=== PATIENT | male | born 1975 | race African-American/Black ===

== ENCOUNTER → 2017-10-23 | Outpatient (CLI) | payer OTHER ==
--- NOTE | 2017-10-24 07:43 | RAD ---
Indication: Short of air and chest pressure. Smoker. Technique: Two-view chest radiograph was obtained. No comparison is available. Findings: The lungs are clear. The cardiopulmonary silhouette is within normal limits. There is no pleural effusion. Bony structures are intact. Impression: No active pulmonary disease. Electronically signed by: Santiago Meeks MD (10/24/2017 7:39 AM) [facility]
== END | disposition home or self-care (01) ==
LOC: RAD 16:58
PROVIDERS: ATTEND Family Medicine
DX: R06.02 Shortness of breath (principal); R07.89 Other chest pain; F17.200 Nicotine dependence, unspecified, uncomplicated
CPT/HCPCS: 71046

== ENCOUNTER 2019-08-04 12:24 | Emergency (ER) | payer SELFPAY ==
[~2019-08-04] VITALS: Ht 190.5 cm; Wt 142.5 kg
[2019-08-04] MEDS ORDERED: KETOROLAC 60 MG/2 ML VIAL. IM ONE (13:00)
--- NOTE | 2019-08-04 13:01 | PHYS DOC ---
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 He states the pain started last night and is been severe in nature. He states it does radiate to his back. He denies any dysuria gross hematuria. He denies any urethral discharge. He does admit to polyuria and polydipsia. [] Review of Systems: Review of Systems: Constitutional: Denies fever or chills Eyes: Denies change in visual acuity HENT: Denies nasal congestion or sore throat Respiratory: Denies cough or shortness of breath Cardiovascular: Denies chest pain or edema GI: Denies abdominal pain, nausea, vomiting, bloody stools or diarrhea : Per HPI Musculoskeletal: Denies back pain or joint pain Integument: Denies rash Neurologic: Denies headache, focal weakness or sensory changes Endocrine: Reports polyuria and polydipsia Lymphatic: Denies swollen glands Psychiatric: Denies depression or anxiety Heart Score: Risk Factors: Risk Factors: DM, Current or recent (<one month) smoker, HTN, HLP, family history of CAD, obesity. Risk Scores: Score 0 - 3: 2.5% MACE over next 6 weeks - Discharge Home Score 4 - 6: 20.3% MACE over next 6 weeks - Admit for Clinical Observation Score 7 - 10: 72.7% MACE over next 6 weeks - Early Invasive Strategies Family History: Family History: Says he has a family history of diabetes Current Medications: Current Meds: Current Medications Medications (Trade) Dose Ordered Sig/[facility] Start Time Stop Time Status Last Admin Dose Admin Ketorolac Tromethamine (Toradol Im) 60 mg 1X ONCE 08/04/19 13:00 08/04/19 13:01 08/04/19 12:55 60 MG Allergies: Allergies: Allergies Coded Allergies Type Severity Reaction Last Updated Verified No Known Drug Allergies 08/04/19 No Physical Exam: PE: Constitutional: Well developed, well nourished, no acute distress, non-toxic appearance. [] HENT: Normocephalic, atraumatic, bilateral external ears normal, oropharynx moist, no oral exudates, nose normal. [] Eyes: PERRLA, EOMI, conjunctiva normal, no discharge. [] Neck: Normal range of motion, no tenderness, supple, no stridor. [] Cardiovascular:Heart rate regular rhythm, no murmur [] Lungs & Thorax: Bilateral breath sounds clear to auscultation [] Abdomen: Bowel sounds normal, soft, no tenderness, no masses, no pulsatile masses. [] : Right testicle is mildly tender to palp not particularly swollen no erythema Skin: Warm, dry, no erythema, no rash. [] Back: No tenderness, no CVA tenderness. [] Extremities: No tenderness, no cyanosis, no clubbing, ROM intact, no edema. [] Neurologic: Alert and oriented X 3, normal motor function, normal sensory function, no focal deficits noted. [] Psychologic: Affect normal, judgement normal, mood normal. [] Current Patient Data: Vital Signs: Vital Signs Date Time Temp Pulse Resp B/P (MAP) Pulse Ox O2 Delivery O2 Flow Rate FiO2 08/04/19 12:30 98.0 75 20 161/113 (129) 97 Room Air EKG: EKG: [] Radiology/Procedures: Radiology/Procedures: []PROCEDURE: TESTICULAR/SCROTUM EXAM: Scrotal Ultrasound INDICATION: Right testicle pain ? TECHNIQUE: Real-time ultrasound of the scrotum with permanent freeze-frame documentation. ? COMPARISON:?None. ? FINDINGS: RIGHT: TESTICLE: 5.1 x 3.3 x 2.0 cm. Unremarkable. Normal blood flow. EPIDIDYMIS: Unremarkable. OTHER: Right groin lymph node measuring 3.0 x 1.4 x 1.0 cm shows no cortical thickening or abnormal decreased echogenicity. A right varicocele is present. LEFT: TESTICLE: 5.2 x 2.9 x 2.3 cm. Unremarkable. Normal blood flow. EPIDIDYMIS: Unremarkable. OTHER: No varicocele or hydrocele. SCROTAL WALL: Unremarkable. IMPRESSION: ? Right varicocele. Otherwise unremarkable scrotal ultrasound. Normal testicles. Impressions: The right scrotal ultrasound was negative according to the radiologist. Course & Med Decision Making: Course & Med Decision Making Pertinent Labs and Imaging studies reviewed. (See chart for details) [] Dragon Disclaimer: Dragon Disclaimer: This electronic medical record was generated, in whole or in part, using a voice recognition dictation system. Departure Departure: Impression: Primary Impression: Right testicular pain Disposition: HOME, SELF-CARE Condition: STABLE Referrals: PCP,BLANQUITA (PCP) Patient Instructions: Scrotal Swelling, Testicular Problems and Self-Exam Additional Instructions: Return to the emergency department with any new or concerning symptoms Scripts Naproxen (NAPROXEN) 500 Mg Tablet. 1 TAB PO Q12HR PRN for PAIN, #60 TAB 1 Refill Prov: PAO WYNNE DO 08/04/19 PAO WYNNE DO Aug 04, 2019 13:01
[2019-08-04 13:26] LABS: BASO # 0.1 x10^3/uL (0.0-0.2); BASO % 1 % (0-3); EOS # 0.3 x10^3/uL (0.0-0.7); EOS % 3 % (0-3); HEMATOCRIT 45.8 % (39.0-53.0); HEMOGLOBIN 15.8 g/dL (13.0-17.5); LYMPH # 3.4 x10^3/uL (1.0-4.8); LYMPH % 32 % (24-48); MEAN CORPUSCULAR HEMOGLOBIN 32 pg (25-35); MEAN CORPUSCULAR HGB CONC 34 g/dL (31-37); MEAN CORPUSCULAR VOLUME 94 fL (79-100); MONO # 0.8 x10^3/uL (0.0-1.1); MONO % 8 % (0-9); NEUT # 5.9 x10^3uL (1.8-7.7); NEUT % 57 % (31-73); PLATELET COUNT 218 x10^3/uL (140-400); RED BLOOD COUNT 4.86 x10^6/uL (4.30-5.70); RED CELL DISTRIBUTION WIDTH 13.6 % (11.5-14.5); WHITE BLOOD COUNT 10.4 x10^3/uL (4.0-11.0)
[2019-08-04 13:32] LABS: CALCIUM 9.1 mg/dL (8.5-10.1); CREATININE 0.9 mg/dL (0.7-1.3); GFR 110.4; POTASSIUM 3.5 mmol/L (3.5-5.1)
[2019-08-04 13:36] VITALS: BP 151/107
[2019-08-04 13:38] LABS: ALBUMIN 3.7 g/dL (3.4-5.0); ALBUMIN/GLOBULIN RATIO 1.1 (1.0-1.7); TOTAL BILIRUBIN 0.4 mg/dL (0.2-1.0); TOTAL PROTEIN 7.1 g/dL (6.4-8.2)
[2019-08-04 13:45] LABS: BACTERIA,URINE 0 /HPF (0-FEW); BILIRUBIN,URINE NEG (NEG); CLARITY,URINE CLEAR; COLOR,URINE YELLOW; GLUCOSE,URINE NEG (NEG); NITRITE,URINE NEG (NEG); SQUAMOUS EPITHELIAL CELL,UR FEW /LPF; UROBILINOGEN,URINE 0.2 mg/dL (0.2 mg/dL)
[2019-08-04] MEDS ORDERED: NAPR500T8 PO (14:02)
== END 2019-08-04 14:08 | disposition home or self-care (01) ==
LOC: ER 12:24
DX: N50.811 Right testicular pain (principal); R35.8 Other polyuria; R63.1 Polydipsia; F17.200 Nicotine dependence, unspecified, uncomplicated
CPT/HCPCS: 36415; 76870; 80053; 81001; 85025; 96372; 99284; J1885

== ENCOUNTER 2019-08-14 14:03 | Emergency (ER) | payer SELFPAY ==
[~2019-08-14] VITALS: Ht 188 cm; Wt 144.7 kg
[~2019-08-14 14:03] MED LIST: NAPR500T8 PO
[2019-08-14] MEDS ORDERED: KETOROLAC 60 MG/2 ML VIAL. IM ONE (14:30)
[2019-08-14] MEDS ORDERED: ORPHENADRINE CITRATE 60 MG/2 ML VIAL. IM ONE (14:45)
[2019-08-14] MEDS ORDERED: NAPR-682 PO (14:45)
[2019-08-14] MEDS ORDERED: DIAZ2TAB PO (14:45)
[2019-08-14] MEDS ORDERED: PRED20TA PO (14:45)
[2019-08-14] MEDS ORDERED: methylPREDNISolone SOD SUCC PF 125 MG/2 ML VIAL. IM ONE (14:45)
[2019-08-14] MEDS ORDERED: DIAZ5TAB PO (14:52)
--- NOTE | 2019-08-14 14:53 | PHYS DOC ---
Past History Past Medical History: No Pertinent History Past Surgical History: No Surgical History Additional Smoking Information: PACK/DAY Alcohol Use: Occasionally General Adult EDM: Chief Complaint: Neck Pain HPI: HPI: Patient is a 44 years old male who presented to the ER today for evaluation of neck pain and stiffness for two days, no fever, no headache, no sorethroat. He woke up yesterday, felt like he slept on it wrong, having pain, went to work, has have trouble bending his neck. He denied any injury. No upper and lower extremities weakness or numbness. No cough, no sick contact. Review of Systems: Review of Systems: Constitutional: Denies fever or chills Eyes: Denies change in visual acuity HENT: Denies nasal congestion or sore throat Respiratory: Denies cough or shortness of breath Cardiovascular: Denies chest pain or edema GI: Denies abdominal pain, nausea, vomiting, bloody stools or diarrhea : Denies dysuria Musculoskeletal: Denies back pain, positive for neck pain and stiffness. Integument: Denies rash Neurologic: Denies headache, focal weakness or sensory changes Endocrine: Denies polyuria or polydipsia Lymphatic: Denies swollen glands Psychiatric: Denies depression or anxiety Heart Score: Risk Factors: Risk Factors: DM, Current or recent (<one month) smoker, HTN, HLP, family history of CAD, obesity. Risk Scores: Score 0 - 3: 2.5% MACE over next 6 weeks - Discharge Home Score 4 - 6: 20.3% MACE over next 6 weeks - Admit for Clinical Observation Score 7 - 10: 72.7% MACE over next 6 weeks - Early Invasive Strategies Current Medications: Current Meds: Current Medications Medications (Trade) Dose Ordered Sig/[facility] Start Time Stop Time Status Last Admin Dose Admin Ketorolac Tromethamine (Toradol Im) 60 mg 1X ONCE 08/14/19 14:30 08/14/19 14:31 UNV Methylprednisolone Sodium Succinate (SOLU-Medrol 125MG VIAL) 125 mg 1X ONCE 08/14/19 14:30 08/14/19 14:31 UNV Orphenadrine Citrate (Norflex) 60 mg 1X ONCE 08/14/19 14:30 08/14/19 14:31 UNV Allergies: Allergies: Allergies Coded Allergies Type Severity Reaction Last Updated Verified No Known Drug Allergies 08/04/19 No Physical Exam: PE: Constitutional: Well developed, well nourished, no acute distress, non-toxic appearance. [] HENT: Normocephalic, atraumatic, bilateral external ears normal, oropharynx moist, no oral exudates, nose normal. [] Eyes: PERRLA, EOMI, conjunctiva normal, no discharge. [] Neck: Normal range of motion, no tenderness, supple, no stridor. [] Cardiovascular:Heart rate regular rhythm, no murmur [] Lungs & Thorax: Bilateral breath sounds clear to auscultation [] Abdomen: Bowel sounds normal, soft, no tenderness, no masses, no pulsatile ma sses. [] Skin: Warm, dry, no erythema, no rash. [] Back: No tenderness, no CVA tenderness. Neck's muscle is tensed, and spasm, tender to touch. No midline cervical tenderness to palpation. Extremities: No tenderness, no cyanosis, no clubbing, ROM intact, no edema. [] Neurologic: Alert and oriented X 3, normal motor function, normal sensory function, no focal deficits noted. [] Psychologic: Affect normal, judgement normal, mood normal. [] Current Patient Data: Vital Signs: Vital Signs Date Time Temp Pulse Resp B/P (MAP) Pulse Ox O2 Delivery O2 Flow Rate FiO2 08/14/19 14:10 97.9 79 20 177/107 (130) 97 Room Air EKG: EKG: [] Radiology/Procedures: Radiology/Procedures: [] Course & Med Decision Making: Course & Med Decision Making Pertinent Labs and Imaging studies reviewed. (See chart for details) [] Dragon Disclaimer: Jose Miguel Disclaimer: This electronic medical record was generated, in whole or in part, using a voice recognition dictation system. Departure Departure: Impression: Primary Impression: Torticollis, acute Disposition: 01 HOME, SELF-CARE Condition: STABLE Referrals: PCP,BLANQUITA (PCP) Patient Instructions: Torticollis, Acute Scripts Diazepam (VALIUM) 5 Mg Tablet 5 MG PO TID for muscle spasm for 3 Days, #9 TAB Prov: ALMAZ HAZEL DO 08/14/19 Prednisone (PREDNISONE) 20 Mg Tablet 1 TAB PO DAILY for neck pain, #7 TAB Prov: ALMAZ HAZEL DO 08/14/19 Naproxen Sodium (ANAPROX DS) 550 Mg Tablet 1 TAB PO BID for pain for 15 Days, #30 TAB 0 Refills Prov: ALMAZ HAZEL DO 08/14/19 ALMAZ HAZEL DO August 14, 2019 14:53
[2019-08-14 15:00] VITALS: BP 183/102
== END 2019-08-14 15:04 | disposition home or self-care (01) ==
LOC: ER 14:03
DX: M43.6 Torticollis (principal); F17.200 Nicotine dependence, unspecified, uncomplicated
CPT/HCPCS: 96372; 99284; J1885; J2360; J2930

== ENCOUNTER 2020-11-14 16:42 | Emergency (ER) | payer BC ==
[~2020-11-14] VITALS: Ht 188 cm; Wt 143.7 kg
[~2020-11-14 16:42] MED LIST changes: +DIAZ2TAB PO; +DIAZ5TAB PO; +NAPR-682 PO; +PRED20TA PO
[2020-11-14] MEDS ORDERED: CYCL5TAB PO (17:03)
--- NOTE | 2020-11-14 17:07 | PHYS DOC ---
Past History Past Medical History: No Pertinent History Past Surgical History: No Surgical History Alcohol Use: Occasionally General Adult EDM: Chief Complaint: HIP PAIN HPI: HPI: Patient is a 45-year-old male being seen in the ER for left lower back pain that radiates into his buttock and down his leg. Patient reports a 2-day history of this pain. Patient was seen previously in this ER and diagnosed with sciatica. Patient denies any injury, saddle anesthesias, loss of bowel or bladder, numbness or tingling in extremitie. Patient rates pain 10 out of 10. No treatment prior to arrival. Patient is able to bear weight and ambulate with steady gait. Review of Systems: Review of Systems: 14 body systems of the review of systems have been reviewed. See HPI for pertinent positive and negative responses, otherwise all other systems are negative, nonpertinent or noncontributory Allergies: Allergies: Allergies Coded Allergies Type Severity Reaction Last Updated Verified No Known Drug Allergies 08/04/19 No Physical Exam: PE: Constitutional: Well developed, well nourished, no acute distress, non-toxic appearance. [] HENT: Normocephalic, atraumatic, bilateral external ears normal, oropharynx moist, no oral exudates, nose normal. [] Eyes: PERRL, EOMI, conjunctiva normal, no discharge. [] Neck: Normal range of motion, no tenderness, supple, no stridor. [] Cardiovascular:Heart rate regular rhythm, no murmur [] Lungs & Thorax: Bilateral breath sounds clear to auscultation [] Abdomen: Bowel sounds normal, soft, no tenderness, no masses, no pulsatile masses. [] Skin: Warm, dry, no erythema, no rash. [] Back: Normal range of motion, left lower paraspinal tenderness Extremities: No tenderness, no cyanosis, no clubbing, ROM intact, no edema. [] Neurologic: Alert and oriented X 3, normal motor function, normal sensory function, no focal deficits noted. [] Psychologic: Affect normal, judgement normal, mood normal. [] Current Patient Data: Vital Signs: Vital Signs Date Time Temp Pulse Resp B/P (MAP) Pulse Ox O2 Delivery O2 Flow Rate FiO2 11/14/20 16:51 97.9 88 20 159/107 98 Room Air EKG: EKG: [] Radiology/Procedures: Radiology/Procedures: [] Heart Score: C/O Chest Pain: No Risk Factors: Risk Factors: DM, Current or recent (<one month) smoker, HTN, HLP, family history of CAD, obesity. Risk Scores: Score 0 - 3: 2.5% MACE over next 6 weeks - Discharge Home Score 4 - 6: 20.3% MACE over next 6 weeks - Admit for Clinical Observation Score 7 - 10: 72.7% MACE over next 6 weeks - Early Invasive Strategies Course & Med Decision Making: Course & Med Decision Making Pertinent Labs and Imaging studies reviewed. (See chart for details) Patient is a 45-year-old male being seen in the ER for left lower back pain that radiates into his leg. Patient was previously diagnosed with sciatica. He does not have any new injuries or any concerning symptoms like saddle anesthesia or loss of bowel or bladder. I discussed with patient the options available to him with regard to imaging of his lower back. Patient reports that last time he was seen in the ER for this they gave him a shot and it helped with his pain and states that he would just like pain control. Patient treated for pain in the ER and discharged home with a muscle relaxer and advised to take anti- inflammatory medications. Patient is requesting a steroid medication as and reports that that is what they gave him last time that improved his symptoms. Patient discharged home with Medrol Dosepak. I discussed with patient all findings as well as the need to follow-up with PCP for further evaluation and treatment or return to the ER if any new or worsening symptoms. Strict return precautions were also discussed at length. Patient voiced understanding and agreement with the plan. Patient is hemodynamically stable at the time of disposition. Jose Miguel Disclaimer: Jose Miguel Disclaimer: This electronic medical record was generated, in whole or in part, using a voice recognition dictation system. Departure Departure: Impression: Primary Impression: Low back pain Qualified Codes: M54.42 - Lumbago with sciatica, left side; G89.29 - Other chronic pain Disposition: 01 HOME / SELF CARE / HOMELESS Condition: GOOD Referrals: PCP,NO (PCP) Patient Instructions: Sciatica Additional Instructions: You are seen in the ER for left lower back pain that radiated to your buttocks. This is most likely sciatica. You were treated in the ER for pain. You are also being discharged home with a prescription for steroid, please take as directed. Your are being discharged home with a prescription for a muscle relaxer. Please take this as directed. Do not take this medication when you need to be alert as it does cause sedation and do not take this medication with alcohol. You can continue to take naproxen or ibuprofen at home for antiinflammation. Follow-up with your primary care provider tomorrow regarding your ER visit. If you develop loss of bowel or bladder, numbness or tingling in your groin, worsening of your pain, inability to bear weight or walk, severe nausea or vomiting please return to the ER immediately. EMERGENCY DEPARTMENT GENERAL DISCHARGE INSTRUCTIONS Thank you for coming to [facility] (ED) today and trusting us with you care. We trust that you had a positivie experience in our Emergency Department. If you wish to speak to the department management, you may call the director at [phone]. YOUR FOLLOW UP INSTRUCTIONS ARE FOLLOWS: 1. Do you have a private Doctor? If you do not have a private doctor, please ask for a resource list of physicians or clinics that may be able to assist you with follow up care. 2. The Emergency Physician has interpreted your x-rays. The X-Ray specialist will also review them. If there is a change in the findings, you will be notified in 48 hours when at all possible. 3. A lab test or culture has been done, your results will be reviewed and you will be notified if you need a change in treatment. ADDITIONAL INSTRUCTIONS AND INFORMATION: 1. Your care today has been supervised by a physician who is specially trained in emergency care. Many problems require more than one evaluation for a complete diagnosis and treatment. We recommend that you schedule your follow up appointment as recommended to ensure complete treatment of you illness or injury. If you are unable to obtain follow up care and continue to have a problem, or if your condition worsens, we recommend that you return to the ED. 2. We are not able to safely determine your condition over the phone nor are we able to give sound medical advice over the phone. For these safety reasons, if you call for medical advice we will ask you to come to the ED for further evaluation. 3. If you have any questions regarding these discharge instructions please call the ED at [phone]. SAFETY INFORMATION: In the interest of safety, wellness, and injury prevention; we encourage you to wear your sealbelt, if you smoke; quite smoking, and we encourage family to use a p rotective helmet for bicycling and other sporting events that present an increased risk for head injury. IF YOUR SYMPTOMS WORSEN OR NEW SYMPTOMS DEVELOP, OR YOU HAVE CONCERNS ABOUT YOUR CONDITION; OR IF YOUR CONDITION WORSENS WHILE YOU ARE WAITING FOR YOUR FOLLOW UP APPOINTMENT; EITHER CONTACT YOUR PRIMARY CARE DOCTOR, THE PHYSICIAN WHOSE NAME AND NUMBER YOU WERE GIVEN, OR RETURN TO THE ED IMMEDIATELY. Scripts Methylprednisolone (MEDROL) 4 Mg Tab.ds.pk 1 PKG PO UD for back pain, #1 PKG 0 Refills Prov: BRANDON FRAZIER APRN 11/14/20 Cyclobenzaprine Hcl (CYCLOBENZAPRINE HCL) 5 Mg Tablet 1 TAB PO TID for back pain for 3 Days, #9 TAB 0 Refills Prov: BRANDON FRAZIER APRN 11/14/20 BRANDON FRAZIER APRN Nov 14, 2020 17:07
[2020-11-14] MEDS: ORPHENADRINE CITRATE 60 MG/2 ML VIAL. IM ONE (17:10)
[2020-11-14] MEDS: KETOROLAC 60 MG/2 ML VIAL. IM ONE (17:10)
[2020-11-14] MEDS ORDERED: METH4TAB2 PO (17:18)
[2020-11-14 17:28] VITALS: BP 152/92
== END 2020-11-14 17:30 | disposition home or self-care (01) ==
LOC: ER 16:42
DX: M54.42 Lumbago with sciatica, left side (principal); G89.29 Other chronic pain
CPT/HCPCS: 96372; 99284; J1885; J2360

== ENCOUNTER 2021-05-03 13:02 | Emergency (ER) | payer BC ==
[~2021-05-03] VITALS: Ht 188 cm; Wt 143.7 kg
[~2021-05-03 13:02] MED LIST changes: +CYCL5TAB PO; +METH4TAB2 PO
[2021-05-03 14:15] VITALS: BP 152/92
[2021-05-03] MEDS ORDERED: IBUP600T16 PO (14:22)
[2021-05-03] MEDS ORDERED: CYCL10TA19 PO (14:22)
[2021-05-03] MEDS ORDERED: PRED20TA PO (14:22)
--- NOTE | 2021-05-03 14:23 | PHYS DOC ---
Past History Past Medical History: No Pertinent History Past Surgical History: No Surgical History Alcohol Use: Occasionally Adult General HPI HPI Patient is a 46-year-old male presents to the emergency department complaining of stiff neck after sleeping funny this past Friday. Patient reports he has experienced stiff neck problems in the past and responds well to steroids and muscle relaxers. Patient denies injury to his neck, denies recent fever or chills, denies other people living in his home with similar symptoms or illnesses. Denies chest pains, palpitations, fever or chills, chest or nasal congestion. Patient denies nausea. Patient denies stiffness or achiness to other parts of his body. Patient denies other physical complaints or physical concerns. Patient is asking for work excuse for today. Review of Systems Review of Systems 14 body systems of review of systems have been reviewed. See HPI for pertinent positives and negative responses, otherwise all other systems are negative, nonpertinent or noncontributory. Constitutional: Negative except as outlined in HPI above. Skin: Negative except as outlined in HPI above. Eyes: Negative except as outlined in HPI above. HENT: Negative except as outlined in HPI above. Respiratory: Negative except as outlined in HPI above. Cardiovascular: Negative except as outlined in HPI above. GI: Negative except as outlined in HPI above. : Negative except as outlined in HPI above. Musculoskeletal: Negative except as outlined in HPI above. Integument: Negative except as outlined in HPI above. Neurologic: Negative except as outlined in HPI above. Endocrine: Negative except as outlined in HPI above. Lymphatic: Negative except as outlined in HPI above. Psychiatric: Negative except as outlined in HPI above. Allergies Allergies Allergies Coded Allergies Type Severity Reaction Last Updated Verified No Known Drug Allergies 08/04/19 No Physical Exam Physical Exam Constitutional: Well developed, well nourished, no acute distress, non-toxic appearance. 46-year-old male appears uncomfortable however in no apparent distress. HENT: Normocephalic, atraumatic. Oropharynx moist, pink, no deep tissue infectious process appreciated, no drooling, no trismus. Lymphadenopathy of the head and neck appreciated, bilateral TMs within normal limits. Eyes: Conjunctiva normal, no discharge. Neck: Normal range of motion, no stridor. No nuchal rigidity, no midline spinal neck pain. Pain to left-sided muscular structure of neck extending into trapezius muscle. Positive spasm of muscle appreciated. Cardiovascular: No cyanosis appreciated, distal cap refill less than 2 seconds. Lungs & Thorax: Patient is in no respiratory distress, no audible adventitious lung sounds appreciated. Abdomen: Nontender, no abnormalities noted. Skin: Warm, dry, no erythema, no rash. Back: No tenderness, no deformities. Extremities: No tenderness, no cyanosis, no clubbing, ROM intact, no edema. Neurologic: Alert and oriented X 3, normal motor function, normal sensory function, no focal deficits noted. Psychologic: Affect normal, judgement normal, mood normal. EKG EKG [] Radiology/Procedures Radiology/Procedures [] Heart Score C/O Chest Pain: No Risk Factors: Risk Factors: DM, Current or recent (<one month) smoker, HTN, HLP, family history of CAD, obesity. Risk Scores: Risk Factors: DM, Current or recent (<one month) smoker, HTN, HLP, family h istory of CAD, obesity. Course & Med Decision Making Course & Med Decision Making Pertinent Labs and Imaging studies reviewed. (See chart for details) 46-year-old male, vital signs reviewed, presents emergency department concerning neck stiffness after sleeping funny this past Friday. Physical examination is consistent with wry neck, there is no acute injury or physical finding that would warrant emergent imaging, will treat with Depo-Medrol injection, p.o. pain medication, will DC home with NSAID therapy and muscle relaxer, discussed with patient follow-up with primary care for ongoing pain management, return ER precautions and concerns were reviewed. Patient gave verbal understanding of and is amenable to ED discharge planning. Discussed with the patient all findings and diagnostic testing as well as the need to follow-up with their primary care provider for further evaluation and treatment or return to the ED if any new or worsening symptoms. Strict return precautions were also discussed at length, the patient voiced understanding and agreement with the discharge planning. The patient was nontoxic in appearance, in no apparent distress, and hemodynamically stable at the time of disposition. Dragon Disclaimer Dragon Disclaimer This electronic medical record was generated, in whole or in part, using a voice recognition dictation system. Departure Departure: Impression: Primary Impression: Neck pain Additional Impression: Stiff neck Disposition: HOME / SELF CARE / HOMELESS Condition: GOOD Referrals: AIDEN BUCKLEY MD (PCP) Additional Instructions: You were seen today in the emergency department for muscle spasms of your neck. You were treated today with a intramuscular injection of steroid, you are given pain medications in the emergency department. As we discussed I am giving you a work excuse for today, I am also prescribing you a muscle relaxer and pain medication to take at home. You may use warm compresses to your stiff neck 30 minutes on and 30 minutes off while awake as this may help with resolution of pain. Please follow-up with your primary care physician for ongoing neck discomfort and pain management. Return to the emergency department for worsening symptoms or other concerns. Thank you for visiting our Emergency Department. It was a pleasure taking care of you today in the emergency department and we appreciate you trusting us with your care. If any additional problems come up don't hesitate to return to visit us. Please follow up with your primary care provider so they can plan additional care if needed and know about the problem that you had. If symptoms worsen come back to the Emergency Department. Any concerning symptoms that start such as chest pain, shortness of air, weakness or numbness on one side of the body, running high fevers or any other concerning symptoms return to the ER. Scripts Ibuprofen (IBUPROFEN) 600 Mg Tablet 600 MG PO PRN Q6-8HRS PRN for PAIN, #30 TAB 0 Refills Prov: CHRYSTAL RYAN APRN 05/03/21 Cyclobenzaprine Hcl (CYCLOBENZAPRINE HCL) 10 Mg Tablet 1 TAB PO TID PRN PRN for PAIN, #12 TAB 0 Refills Take 1 tablet by mouth up to 3 times a day as needed for neck stiffness. Prov: CHRYSTAL RYAN APRN 05/03/21 Prednisone (PREDNISONE) 20 Mg Tablet 1 TAB PO DAILY for allergies for 7 Days, #7 TAB 0 Refills Take 1 tablet by mouth each day for 7 days. Prov: CHRYSTAL RYAN APRN 05/03/21 Problem Qualifiers CHRYSTAL RYAN APRN May 03, 2021 14:23
[2021-05-03] MEDS ORDERED: methylPREDNISolone ACETATE 40 MG/ML VIAL. IM ONE (14:30)
[2021-05-03] MEDS ORDERED: IBUPROFEN 600 MG TABLET. PO ONE (14:30)
[2021-05-03] MEDS ORDERED: HYDROcodone/APAP 5/325MG 1 TAB TABLET PO ONE (14:30)
== END 2021-05-03 15:20 | disposition home or self-care (01) ==
LOC: ER 13:02
DX: M43.6 Torticollis (principal); M54.2 Cervicalgia
CPT/HCPCS: 96372; 99283; J1030